=== PATIENT | female | born 1970 | race Caucasian/White ===

== ENCOUNTER 2018-04-14 11:22 | Outpatient (CLI) | payer BC ==
--- NOTE | 2018-04-14 14:04 | MMO ---
BILATERAL MAMMOGRAMS: History: Screening mammography. FINDINGS: Baseline study. Scattered fibroglandular densities. On the CC view, there is a subtle area of spiculated type density centrally and a small hypodense asymmetry. This may represent confluence of breast parenchyma but wa rrants further evaluation. No other dominant mass or suspicious calcifications. Study was evaluated w ith the assistance of computer aided detection. IMPRESSION: BIRADS category 0 - incomplete exam. Further evaluation needed. Patient will be recalled for additional views of the right breast that should consist of a spot magni fication CC view, rolled medial and lateral CC views, and a true mediolateral view. POS: TENA
== END 2018-04-14 11:23 | disposition home or self-care (01) ==
LOC: SCSMAMMO 11:22
PROVIDERS: ATTEND Family Medicine
DX: Z12.31 Encounter for screening mammogram for malignant neoplasm of breast (principal)
CPT/HCPCS: 77067

== ENCOUNTER 2018-04-22 14:32 | Outpatient (CLI) | payer BC | END 2018-04-22 14:33 | disposition home or self-care (01) | LOC: BICMAMMO 14:32 | PROVIDERS: ATTEND Family Medicine | DX: R92.2 Inconclusive mammogram (principal) | CPT/HCPCS: G0279 ==